=== PATIENT | female | born 2000 | race Caucasian/White ===

== ENCOUNTER 2023-04-24 06:21 | Day surgery (SDC) | payer SELFPAY ==
[2023-04-12 12:32] VITALS: BMI 20.3
[2023-04-24] MEDS ORDERED: DEXAMETHASONE SOD PHOSPHATE 4 MG/1 ML VIAL ONE (07:01)
[2023-04-24] MEDS ORDERED: PROPOFOL 40 ML ONE (07:01)
[2023-04-24] MEDS ORDERED: LIDOCAINE HCL/PF 2% SDV 5ML VIAL ONE (07:01)
[2023-04-24] MEDS ORDERED: MIDAZOLAM HCL 2 MG/2 ML SINGLE DOSE VIAL ONE ×2 (07:01→08:45)
[2023-04-24] MEDS ORDERED: ceFAZolin SODIUM 1 GM VIAL ONE (07:01)
[2023-04-24] MEDS ORDERED: LIDOCAINE 1%/EPI 1:100000 (20 ML MULTI DOSE VIAL) ONE (07:19)
[2023-04-24] MEDS ORDERED: BUPIVACAINE HCL/PF 0.25% (2.5MG/ML) 10 ML VIAL ONE (07:19)
[2023-04-24] MEDS ORDERED: BUPIVACAINE HCL/PF 2.5 MG/ML - 30 ML VIAL IJ ONE ×2 (07:19→09:55)
[2023-04-24] MEDS ORDERED: BACITRACIN ZINC 15 GM TUBE TOPICAL OINTMENT ONE (07:19)
[2023-04-24] MEDS ORDERED: ONDANSETRON 4 MG/2 ML VIAL IVPUSH PRN (07:37)
[2023-04-24] MEDS ORDERED: PROMETHAZINE HCL 25 MG/1 ML VIAL IVPB PRN (07:37)
[2023-04-24] MEDS ORDERED: oxyCODONE HCL 5 MG TABLET PO PRN (07:37)
[2023-04-24] MEDS ORDERED: LACTATED RINGERS SOLUTION 1,000 ML IV SCH (07:45)
[2023-04-24] MEDS ORDERED: ONDANSETRON 4 MG/2 ML VIAL ONE ×2 (09:52→12:36)
[2023-04-24] MEDS ORDERED: LIDOCAINE 1%/EPI 1:100000 (20 ML MULTI DOSE VIAL) IJ ONE (09:55)
[2023-04-24] MEDS ORDERED: PROPOFOL 20 ML ONE (11:02)
[2023-04-24] MEDS ORDERED: FENTANYL CITRATE/PF 50 MCG/ML VIAL ONE (12:35)
[2023-04-24] MEDS ORDERED: oxyCODONE HCL 5 MG TABLET ONE ×2 (13:07→13:47)
[2023-04-24] MEDS: oxyCODONE HCL 5 MG TABLET PO PRN ×2 (13:10→13:50)
[2023-04-24 13:27] VITALS: PULSE 61; TEMP 97.2
[2023-04-24] MEDS ORDERED: BACITRACIN ZINC 15 GM TUBE TOPICAL OINTMENT TP ONE (13:30)
[2023-04-24 14:59] VITALS: BP 110/62; RESP 16
== END 2023-04-24 14:10 | disposition home or self-care (01) ==
LOC: FASU 06:21
PROVIDERS: ATTEND Surgery
CPT/HCPCS: 81025; 94760